=== PATIENT | female | born 1950 | race Caucasian/White ===

== ENCOUNTER 2021-05-28 15:46 | Outpatient (CLI) | payer MEDICARE, OTHER, SELFPAY ==
--- NOTE | ~2021-05-28 | MM_ITS ---
EXAMINATION: MM screening cecy BI w aki HISTORY: Screening TECHNIQUE: Craniocaudal and mediolateral oblique 3-D tomosynthesis images were obtained and synthetic 2-D images were generated. CAD analysis was submitted and interpreted. COMPARISON: Comparison to multiple prior studies sequentially, with oldest reviewed study dated 07/13. BREAST PARENCHYMAL COMPOSITION: The breasts are heterogeneously dense, which may obscure small masses . FINDINGS: There is a new focal mass in the upper inner quadrant of the left breast anteriorly. There are benign bilateral breast calcifications. There is no mammographic evidence for malignancy in the r ight breast. IMPRESSION: 1. New focal left breast mass, upper inner quadrant anteriorly. 2. Additional mammographic views and possible breast ultrasound are recommended. BI-RADS Category 0: Incomplete: Needs additional imaging evaluation. Reviewed, dictated and finalized at location A. L ASSEMBLER BOAT IMPRESSION: 1. New focal left breast mass, upper inner quadrant anteriorly. 2. Additional mammographic views and possible breast ultrasound are recommended . BI-RADS Category 0: Incomplete: Needs additional imaging evaluation.
== END 2021-05-28 15:47 | disposition home or self-care (01) ==
LOC: ANHIMG 15:51
PROVIDERS: PCP Family Medicine; Visit Provider Family Medicine
DX: Z12.31 Encounter for screening mammogram for malignant neoplasm of breast (principal); R92.8 Other abnormal and inconclusive findings on diagnostic imaging of breast
CPT/HCPCS: 77063; 77067

== ENCOUNTER 2021-06-24 12:54 | Outpatient (CLI) | payer MEDICARE, OTHER, SELFPAY ==
--- NOTE | ~2021-06-24 | MMUS_ITS ---
EXAMINATION: MM diagnostic cecy LT w aki, US breast LT limited HISTORY: Left breast mass on screening mammogram TECHNIQUE: Additional 3-D tomosynthesis images of the left breast were performed and synthetic 2-D im ages were generated. CAD analysis was submitted and interpreted. High resolution limited left breast ultrasound was performed. COMPARISON: 05/28/2021, 04/14/2017, 01/11/2013 BREAST PARENCHYMAL COMPOSITION: The breasts are heterogeneously dense, which may obscure small masses . FINDINGS: MAMMOGRAPHIC FINDINGS: There is a 4 mm round, circumscribed, equal density mass in the subareolar aspect of the breast at th e 12:00 location. No suspicious calcification or architectural distortion are identified. ULTRASOUND: There is a 4 mm cyst at the 12:00 location in the subareolar aspect of the breast corresponding to th e mammographic finding in question. In addition, there is a questionable adjacent mass versus ductal debris in the subareolar aspect of the breast. IMPRESSION: 1. Mass versus ductal debris in the subareolar aspect of the left breast. 2. Recommend 6 month follow-up left diagnostic mammogram and ultrasound. BI-RADS category 3, probably benign findings. Reviewed, dictated and finalized at location A. R MAKING SUPERVISOR IMPRESSION: 1. Mass versus ductal debris in the subareolar aspect of the left breast. 2. Recommend 6 month follow-up left diagnostic mammogram and ultrasound. BI-RADS category 3, probably benign findings.
== END 2021-06-24 12:55 | disposition home or self-care (01) ==
LOC: ANHIMG 12:55
PROVIDERS: PCP Family Medicine; Visit Provider Family Medicine
DX: R92.8 Other abnormal and inconclusive findings on diagnostic imaging of breast (principal)
CPT/HCPCS: 76642; 77061; 77065; G0279

== ENCOUNTER 2021-07-15 18:31 | Emergency (ER) | payer MEDICARE, OTHER, SELFPAY ==
--- NOTE | ~2021-07-15 | XR_ITS ---
XR shoulder LT min 2V 07/15/2021 18:51 Indication: Left shoulder pain after fall Procedure: 3 views left shoulder Comparison: No prior studies for comparison. Findings: There is mildly displaced left humeral neck fracture. Acromioclavicular joint intact. No si gnificant soft tissue abnormality. No foreign bodies. Surrounding osseous structures are unremarkable . Impression: 1: Mildly displaced left humeral neck fracture. Reviewed, dictated and finalized at location A. US SAFETY OFFICER Impression: 1: Mildly displaced left humeral neck fracture.
--- NOTE | ~2021-07-15 | XR_ITS ---
XR wrist RT 2V 07/15/2021 18:51 Indication: Right wrist pain after fall Procedure: 2 views right wrist Comparison: No prior studies for comparison. Findings: There is a comminuted intra-articular fracture of the distal aspect of the radius with dors al displacement and angulation. Moderate soft tissue swelling. 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 Impression: 1: Comminuted intra-articular fracture distal aspect of the right radius with dorsal displacement and angulation. Reviewed, dictated and finalized at location A. SSIONS RECRUITER Impression: 1: Comminuted intra-articular fracture distal aspect of the right radius with d orsal displacement and angulation.
[2021-07-15 18:38] VITALS: BP 180/89; PULSE 118; RESP 18; TEMP 36.2; O2SAT 99
--- NOTE | 2021-07-15 18:59 | ED.UPPEXIN ---
HPI - Extremity Injury (Upper) General Chief Complaint: Extremity Injury, Upper Stated Complaint: FALL Time Seen by Provider: 07/15/21 18:38 History of Present Illness HPI narrative: 70-year-old female presents the emergency room complaints of left shoulder and right wrist pain status post mechanical fall. patient states that she fell with an outstretched hand. Patient states she is unable to move her wrist or her left shoulder without significant pain. Patient has a history of osteoporosis. Related Data Allergies Allergy/AdvReac Type Severity Reaction Status Date / Time No Known Allergies Allergy Verified 07/15/21 18:38 Review of Systems Review of Systems: CONSTITUTIONAL: Denies fever, chills, or sweats. EYES: Denies visual changes, redness, or discharge. ENT: Denies rhinorrhea, congestion, sore throat, or otalgia. CARDIOVASCULAR: Denies chest pain, palpitations, or edema. RESPIRATORY: Denies cough or dyspnea. GASTROINTESTINAL: Denies abdominal pain, nausea, vomiting, or diarrhea. GENITOURINARY: Denies dysuria or hematuria. SKIN: Denies rash or itching. MUSCULOSKELETAL: Patient reports left shoulder pain, right wrist pain. NEUROLOGIC: Denies headache, numbness, dizziness, or weakness. PSYCHIATRIC: Denies anxiety or depression. Exam Narrative: GENERAL: Well-appearing, well-nourished, and in no acute distress. HEAD: Normocephalic, atraumatic. EYES: PERRLA and EOMI. ENT: Nares clear, no rhinorrhea or epistaxis. Mucous membranes moist. Oropharynx without tonsillar hypertrophy exudate or other lesions. Bilateral TMs pearly hernandez nonbulging NECK: Supple. No adenopathy or masses. No carotid bruits or JVD CHEST: Clear to auscultation. No respiratory distress. No wheezes rales or rhonchi HEART: Regular rate and rhythm. No murmur heard. Normal peripheral pulses. ABDOMEN: Soft, nontender, nondistended, normal active bowel sounds. EXTREMITIES: Left shoulder: Tenderness to the left proximal humerus, no soft tissue swelling. No obvious bony abnormality, limited range of motion in all fletcher due to pain, neurovascular distally intact. Right wrist: Obvious bony abnormality, soft tissue swelling, no ecchymosis, limited range of motion due to pain, SKIN: Warm, dry, no rash. NEURO: No focal deficits. Alert and oriented x3. PSYCH: Normal mood and affect. Course Vital Signs Vital signs: Vital Signs Temperature 36.2 C L 07/15/21 18:38 Pulse Rate 118 H 07/15/21 18:38 Respiratory Rate 18 07/15/21 18:38 Blood Pressure 180/89 H 07/15/21 18:38 Pulse Oximetry 99 07/15/21 18:38 Temperature 36.2 C L 07/15/21 18:38 Pulse Rate 118 H 07/15/21 18:38 Respiratory Rate 18 07/15/21 18:38 Blood Pressure 180/89 H 07/15/21 18:38 Pulse Oximetry 99 07/15/21 18:38 MDM - Extremity Injury (Upper) MDM Narrative Medical decision making narrative: Plain films of the left shoulder showed a mildly displaced left humeral neck fracture. Films of the right wrist show a comminuted intra-articular fracture of the distal aspect of the right radius with dorsal displacement and angulation. Discussed case with Dr. Arellano, orthopedics. He wishes to see the patient first thing in the morning. Recommends Lutz wrist fiberglass splint that is well-padded extending from the elbow to the MCP joint. Will send patient home with slings for both arms and pain medicine. Imaging Data Radiologist's impression: Impressions Shoulder X-Ray 07/15/21 18:54 Impression: 1: Mildly displaced left humeral neck fracture. Wrist X-Ray 07/15/21 18:55 Impression: 1: Comminuted intra-articular fracture distal aspect of the right radius with dorsal displacement and angulation. Discharge Plan Discharge Clinical Impression: Fracture of wrist Qualifiers: Encounter type: initial encounter Fracture type: closed Laterality: right Qualified Code(s): S62.101A - Fracture of unspecified carpal bone, right wrist, initial encounter for closed fractu
[2021-07-15] MEDS: MORPHINE SULFATE (*CRX) 4 MG/ML INJ IV PUSH (19:46)
[2021-07-15] MEDS: ONDANSETRON INJ 4 MG/2 ML VIAL IV PUSH (19:46)
--- NOTE | 2021-07-15 20:14 | PC.NURSE ---
as is abrahamer doing conscious sedation NS fluids not given. pt. received morphine and zonfran
--- NOTE | 2021-07-17 15:57 | PC.NURSE ---
bilateral sling applied to pt. pt. broke her right wrist and left shoulder and as per Dr. Arellano, ortho pt. is to have bilateral slings. pt. refused to wear right sling at discharge but but slings were applied to pt. arms
== END 2021-07-15 21:02 | disposition home or self-care (01) ==
LOC: ANHED 20:16
PROVIDERS: Emergency Provider Nurse Practitioner Family; PCP Family Medicine
DX: S52.571A Other intraarticular fracture of lower end of right radius, initial encounter for closed fracture (principal); S42.212A Unspecified displaced fracture of surgical neck of left humerus, initial encounter for closed fracture; W19.XXXA Unspecified fall, initial encounter
CPT/HCPCS: 29125; 73030; 73100; 96374; 96375; 99284; A4565; J2270; J2405

== ENCOUNTER → 2021-07-17 03:40 | Outpatient (CLI) | payer MEDICARE, OTHER, SELFPAY ==
[2021-07-17 11:21] LABS: SARS-CoV-2 RNA PCR Negative
== END ==
PROVIDERS: PCP Family Medicine; Visit Provider Orthopaedic Surgery
DX: Z01.812 Encounter for preprocedural laboratory examination (principal); Z20.822 Contact with and (suspected) exposure to COVID-19
CPT/HCPCS: C9803; U0003; U0005

== ENCOUNTER 2021-07-20 00:36 | Day surgery (SDC) | payer MEDICARE, OTHER, SELFPAY ==
[2021-07-17 11:52] VITALS: BMI 31.8
--- NOTE | 2021-07-17 12:04 | PC.NURSE ---
Report to the Outpatient Waiting Room, entrance under the green pavilion located off [facility], at time 0930 on date 07/20/21. OR Time: 1130. - You and your visitor will be asked a series of questions to screen for COVID 19 for your protection. - A mask is required within the hospital. One visitor will be allowed to accompany the patient into the hospital. Patients visitor will be instructed to remain with patient at all times or leave the building. We will allow the visitor to come back to the postoperative area when patient is ready. Preoperative COVID Testing Requirements: COVID TEST 3/ AT 8:30 No COVID Test needed if: (proof is required; if not received patient will have Rapid Test prior to entry) - Patient has received COVID Vaccine at least 14 days prior to procedure date or - Patient has positive COVID test result within last 90 days of surgery date. COVID Test needed if above criteria is not met If not COVID vaccinated a COVID test must be conducted within 72 hours of surgery and patient is asked to isolate self from time of testing until procedure. You will go to the [facility] for your COVID testing. The [facility] site is located at the corner of [address] [facility]. You will only be called if COVID results are positive and your surgeon may reschedule your elective surgery date. Patients may have clear liquids (water, carbonated beverages, clear teas, apple juice) until 3 hours prior to surgery with a maximum of 20 ounces. - No food from midnight until time of surgery Take the following medications with a SIP of water the morning of surgery: PAIN PILL (IF NEEDED) Medications to discontinue per physician: N/A Date to take last dose: N/A Please no make-up, nail greek, hairspray, perfume, deodorant, or body powder the day of surgery. No jewelry (including any body piercings) or valuables the day of surgery, leave them at home. Please take a shower or bath the night before, or the morning of, surgery with an antibacterial soap. Wear comfortable, loose fitting clothing. - Jewelry must be removed prior to entering the operating room. Rings and piercings that are not removed may be cut off. - The hospital will not accept responsibility for valuables. - Please leave all valuables, including medications, at home the day of surgery. If you are going home after surgery, a licensed driver education instructor must drive you home. - NO public transportation without another adult. - We recommend that an adult stay with you for 24 hours following discharge. - We also recommend that you do not drive, make important decision, drink alcoholic beverages, or take any drugs that were not prescribed by your health care provider for at least 24 hours after your discharge time. Follow any additional instructions given to you from your surgeon. Telephone instructions given to UBALDO ACKERMAN and asked if any additional questions and then verbalized understanding. Patient advised to call surgeon office or pre surgery nurse liaison [phone] if any additional questions.
[2021-07-20] VITALS (11 sets, daily range): BP systolic 133–158; BP diastolic 62–134; PULSE 97–109; RESP 12–20; TEMP 36–36.3; O2SAT 99–100
--- NOTE | ~2021-07-20 | XR_ITS ---
EXAMINATION: XR surgery orthopedic EXAM DATE: 07/20/2021 13:01 INDICATION: Right wrist ORIF. TECHNIQUE: Fluoroscopy used during right wrist ORIF performed by Dr. Ricky Arellano MD. Radiologi st was not present for the imaging or procedure. Total fluoroscopic time of 30 seconds. The DAP for this procedure was 0.02 mGym2. A total of 3 images sent to PACS from the exam. Comparison is made t o prior examination from 07/15/2021. FINDINGS: Status post right distal radial metaphyseal ORIF, treated with a surgical plate, fixation screws. Alignment anatomic. Correlate with procedure note. IMPRESSION: Fluoroscopy used during right distal radial ORIF. Reviewed, dictated and finalized at location A. NT DEVELOPMENT DIRECTOR
--- NOTE | 2021-07-20 08:57 | WPDANESEPPF ---
Anes - Initial Pre Proc Eval Procedure: Operation Date: 07/20/21 11:30 Proposed Procedures p Open Reduction Internal Fixation Right Distal Radius Versus External Fixation - Ricky Arellano MD <Yobany Murray MD - Last Filed: 07/20/21 14:12> Date/Time: 07/20/21 08:57 <Yobany Murray MD - Last Filed: 07/20/21 14:12> Surgeon: Ricky Arellano MD <Yobany Murray MD - Last Filed: 07/20/21 14:12> Pre Op Diagnosis: right distal radial fracture <Yobany Murray MD - Last Filed: 07/20/21 14:12> Patient Data Age: 70 Gender: F Height: 1.63 m Weight: 84 kg <Yobany Murray MD - Last Filed: 07/20/21 14:12> Allergies Allergy/AdvReac Type Severity Reaction Status Date / Time No Known Allergies Allergy Verified 07/20/21 10:17 <Yobany Murray MD - Last Filed: 07/20/21 14:12> Home Medications Medication Instructions Recorded Confirmed Type losartan 50 mg-hydrochlorothiazide 1 tablet PO DAILY 07/16/21 07/20/21 History 12.5 mg tablet simvastatin 20 mg tablet 20 mg PO DAILY 07/16/21 07/20/21 History hydrocodone-acetaminophen 1 tablet PO Q6H PRN #30 tablet 07/20/21 Rx <Yobany Murray MD - Last Filed: 07/20/21 14:12> Patient hx anesthesia problems: none <Romero Gonzalez DO - Last Filed: 07/20/21 11:10> Family hx anesthesia problems: none <Romero Gonzalez DO - Last Filed: 07/20/21 11:10> Results Review: All pre-operative results and documents have been reviewed as part of the pre-operative evaluation. <oYbany Murray MD - Last Filed: 07/20/21 14:12> PMFSH Past Medical History Medical History: Medical History (Updated 07/20/21 @ 08:58 by Yobany Murray MD) Fracture of surgical neck of left humerus HTN (hypertension) Hyperlipidemia Intra-articular fracture of distal end of right radius with volar angulation Multiple sclerosis Obesity <Yobany Murray MD - Last Filed: 07/20/21 14:12> Surgical History Surgical History: Surgical History History of spinal surgery <Yobany Murray MD - Last Filed: 07/20/21 14:12> Family History Family History: Family History Other Diabetes mellitus Hypertension <Yobany Murray MD - Last Filed: 07/20/21 14:12> Social History Social History: Social History Smoking status: Never smoker Alcohol intake: never Substance use: never Substance use type: does not use Living arrangements: with family Gender identity (if verbalized by the patient): Female Spiritual care concerns: No <Yobany Murray MD - Last Filed: 07/20/21 14:12> Anes - Eval Final PreProcedure Day of Procedure 07/20/21 08:57 <Yobany Murray MD - Last Filed: 07/20/21 14:12> Patient weight: obese <Yobany Murray MD - Last Filed: 07/20/21 14:12> Heart: regular rate and rhythm <Yobany Murray MD - Last Filed: 07/20/21 14:12> Lungs: clear to auscultation and normal air movement <Yobany Murray MD - Last Filed: 07/20/21 14:12> Airway: Mallampati scale class II <Yobany Murray MD - Last Filed: 07/20/21 14:12> Neurological: alert and oriented <Yobany Murray MD - Last Filed: 07/20/21 14:12> Last oral intake: >/= 8 hours <Yobany Murray MD - Last Filed: 07/20/21 14:12> ASA classification: III <Yobany Murray MD - Last Filed: 07/20/21 14:12> Emergent: no <Yobany Murray MD - Last Filed: 07/20/21 14:12> Anesthetic plan: proceed <Yobany Murray MD - Last Filed: 07/20/21 14:12> Anesthesia type and monitoring: general LMA <Yobany Murray MD - Last Filed: 07/20/21 14:12> Results Review: All pre-operative results and documents have been reviewed as part of the pre-operative evaluation. <Yobany Murray,
--- NOTE | 2021-07-20 09:32 | ECG_ITS ---
Measurements Intervals [place] Rate: 85 P: 60 [place]: 144 QRS: 39 QRSD: 85 T: 46 QT: 339 QTc: 404 Interpretive Statements SINUS RHYTHM NORMAL ECG NO PREVIOUS ECG AVAILABLE FOR COMPARISON Electronically Signed On 07-20-2021 15:42:33 TELEMARKETING REPRESENTATIVE by Glenroy Leonard M.D.
--- NOTE | 2021-07-20 09:54 | WPDHPUPDATE1 ---
History and Physical Update Update Date/Time: 07/20/21 09:54 History and Physical has been reviewed, including an updated exam of the patient. There are NO changes in the patient's condition. Risks, benefits, and alternatives have been discussed and questions answered. Patient agrees to proceed with procedure.
[2021-07-20] MEDS: LACTATED RINGERS 1,000 ML 30 ML IV CONT (10:00)
[2021-07-20 10:19] LABS: Anion Gap 7 mmol/L (8-16); Blood Urea Nitrogen 26 mg/dL (7-17); Calcium 9.4 mg/dL (8.4-10.2); Carbon Dioxide 29 mmol/L (22-30); Chloride 102 mmol/L (98-107); Estimated CRCL calculation 45 ml/min; Estimated Glomerular Filt Rate 49; Glucose 109 mg/dL (65-110); Potassium 4.1 mmol/L (3.4-5.0); Sodium 138 mmol/L (137-145)
[2021-07-20] MEDS: KETOROLAC 15 MG/ML VIAL (*BKC) IV PUSH (10:21)
[2021-07-20] MEDS: ceFAZolin 2 GM/D5W 50 ML 2 GM/50 ML BAG IVPB (11:41)
[2021-07-20] MEDS: BUPIVACAINE HCL 0.25% PF 30 ML VIAL INFILTRATE (12:23)
[2021-07-20] MEDS: fentaNYL CITRATE INJ (*CRX) 100 MCG/2 ML VIAL 25 MCG IV PUSH ×6 (13:30→15:29)
--- NOTE | 2021-07-20 13:30 | P.OP_ITS ---
Procedure Note - Detailed Date of Procedure 07/20/21 Pre-op Diagnosis Intra-articular right distal radial fracture Post-op Diagnosis Same Procedure Performed ORIF right intra-articular distal radius fracture Surgeon Ricky Arellano MD Shooting Gallery Operator Lyric Tidwell Anesthesia General Description of Procedure The patient was identified and the proper side identified. She was taken back to the operating room, transferred to the or table positioning supine taking care to pad her torso and extremities. After general anesthetic induction and intubation, a nonsterile tourniquet was placed high on the right arm which was prepped and draped in the usual sterile fashion. The extremity was exsanguinated and tourniquet inflated to 250 mmHg remaining up for approximately 58 minutes. A volar longitudinal incision was made along the FCR tendon distally. The subcutaneous tissue was sharply dissected protecting neurovascular structures. The FCR tendon was released from its sheath and retracted ulnarly. This allowed for the deep fascia of the forearm to be divided longitudinally in line with the incision. Care was taken to protect the volar compartment structures as well as the radial nerve and radial vascular structures. The pronator quadratus was elevated off of the distal radius allowing for inspection of the fracture site. The fracture fragments were disimpacted and able to be realigned virtually anatomically with fluoroscopic assistance. They were secured in this position with a wide, short plate from the DVR set. The plate was applied with fluoroscopic visualization to avoid penetration of the joint and to ensure optimal hardware placement. Once the plate was secure the overall construct was assessed fluoroscopically on the AP and lateral views. The virtually anatomic reduction was held very nicely. The construct was stable. The wound was irrigated with a copious amount of sterile antibiotic solution. Skin edges were reapproximated with 2-0 Quill and the tissue adhesive. Sterile dressing was applied. Tourniquet was released. A well-padded short-arm volar wrist splint was fashioned. The procedure was well tolerated. There were no known intraoperative complications. Estimated blood loss was negligible. Estimated Blood Loss 5 Tourniquet Time 58 Drains No Packing No Pathology None sent Complications No immediate complications Condition Stable Disposition PACU
[2021-07-20] MEDS: oxyCODONE HCL (*CRX) 5 MG TAB IR PO (15:19)
== END 2021-07-20 16:00 | disposition home or self-care (01) ==
PROVIDERS: Anesthesiology; PCP Family Medicine; Visit Provider Orthopaedic Surgery
PROC: (CPT 25575; principal; 2021-07-20 11:30)
DX: S52.571A Other intraarticular fracture of lower end of right radius, initial encounter for closed fracture (principal); W19.XXXA Unspecified fall, initial encounter; I10 Essential (primary) hypertension; G35 Multiple sclerosis; E78.5 Hyperlipidemia, unspecified; E66.9 Obesity, unspecified; Z68.32 Body mass index [BMI] 32.0-32.9, adult
CPT/HCPCS: 25608; 36415; 80048; 93005; A9270; C1713; J0690; J1100; J1170; J1885; J2250; J2405; J2704; J3010; J7120

== ENCOUNTER 2022-08-11 13:55 | Outpatient (CLI) | payer MEDICARE, OTHER, SELFPAY ==
--- NOTE | ~2022-08-11 | MMUS_ITS ---
EXAMINATION: MM diagnostic cecy BI w aki, US breast LT limited HISTORY: Follow-up left breast mass TECHNIQUE: Additional 3-D tomosynthesis images of the breasts were performed and synthetic 2-D images were generated. CAD analysis was submitted and interpreted. High resolution Limited left breast ultr asound was performed. COMPARISON: Comparison to multiple prior studies sequentially, with oldest reviewed study dated 01/11. BREAST PARENCHYMAL COMPOSITION: The breasts are heterogeneously dense, which may obscure small masses FINDINGS: MAMMOGRAPHIC FINDINGS: The right breast is stable without evidence for malignancy. There is a stable 3.5 mm mass in the marissa areolar location of the left breast. ULTRASOUND: Limited left breast ultrasound: There is a corresponding complicated cyst of the left breast at 4:00 near the nipple measuring 3.4 mm corresponding to the mammographic finding. No other suspicious jaimee s are identified. IMPRESSION: 1. Stable likely benign 3.4 mm complicated cyst of the left breast near the nipple. 2. Recommend 6 month follow-up Limited left breast ultrasound BI-RADS category 3, probably benign findings. Reviewed, dictated and finalized at location A. IMPRESSION: 1. Stable likely benign 3.4 mm complicated cyst of the left breast near the nip ple. 2. Recommend 6 month follow-up Limited left breast ultrasound BI-RADS category 3, probably benign findings.
== END 2022-08-11 13:56 | disposition home or self-care (01) ==
PROVIDERS: PCP Family Medicine; Visit Provider Family Medicine
DX: R92.8 Other abnormal and inconclusive findings on diagnostic imaging of breast (principal)
CPT/HCPCS: 76642; 77061; 77062; 77065; 77066; G0279

== ENCOUNTER 2023-12-12 13:24 | Outpatient (CLI) | payer MEDICARE, OTHER, SELFPAY ==
--- NOTE | ~2023-12-12 | MMUS_ITS ---
EXAMINATION: MM diagnostic eccy BI w aki, US breast LT limited HISTORY: Follow-up left breast mass TECHNIQUE: Additional 3-D tomosynthesis images of the breasts were performed and synthetic 2-D images were generated. CAD analysis was submitted and interpreted. High resolution Limited left breast ultr asound was performed. COMPARISON: Comparison to multiple prior studies sequentially, with oldest reviewed study dated 03/18. BREAST PARENCHYMAL COMPOSITION: Not dense: There are scattered areas of fibroglandular density. FINDINGS: MAMMOGRAPHIC FINDINGS: Stable small mass upper outer quadrant of the left breast as well as medial to the left nipple on CC view, both have a benign appearance and are not significantly changed. No new masses, calcifications or architectural distortion in either breast to suggest malignancy. ULTRASOUND: Limited left breast ultrasound: At 12:00 near the nipple there is a 2 mm cyst which is unchanged from prior examination allowing for differences of technique. No suspicious masses to suggest malignancy. IMPRESSION: 1. No evidence for malignancy in either breast. Benign finding. 2. Routine yearly screening mammogram and regular clinical breast examination are recommended. BI-RADS Category 2: Benign finding(s). Reviewed, dictated and finalized at location B. IMPRESSION: 1. No evidence for malignancy in either breast. Benign finding. 2. Routine yearly screening mammogram and regular clinical breast examination a re recommended. BI-RADS Category 2: Benign finding(s).
== END 2023-12-12 13:25 | disposition home or self-care (01) ==
PROVIDERS: PCP Family Medicine; Visit Provider Family Medicine
DX: R92.8 Other abnormal and inconclusive findings on diagnostic imaging of breast (principal)
CPT/HCPCS: 76642; 77062; 77066; G0279